=== PATIENT | male | born 1955 | race Caucasian/White ===

== ENCOUNTER 2017-02-17 12:13 | Inpatient (IN) | payer OTHER ==
[2017-02-17 12:33] VITALS: BMI 29.8
--- NOTE | 2017-02-17 14:23 | PDOC ---
History of Present Illness - General History Source: Patient, Old Records Exam Limitations: No Limitations - History of Present Illness Initial Comments: 02/17/17 14:31 The patient is a 62-year-man with a significant past medical history of hypertension, hypercholesterolemia, anxiety and bipolar disorder who was advised to present to the emergency department by his primary care physician, Dr. Yasmani Rosas for further evaluation of abnormal outpatient lab findings today. As per patient, he reports he wa son Latty for the past 15 years and suspects that this may have led to his kidney issues. Patient underwent outpatients labs on 11/23/16 which revealed a BUN/Creatinine of 29/2.56 and yesterday which revealed a BUN/Creatinine of 66/5.97. Patient does not have any complaints. No fever, chills, generalized weakness. No chest pain, cough, shortness of breath. No abdominal pain, nausea, vomiting. Allergies: Penicillin Past Surgical History: None reported. Social History: Current everyday cigarette smoker (approximately 6 cigarettes/ day). No EtOH or recreational drug use. Primary Care Physician: Dr. Yasmani Rosas Pest Control Service Representative: Dr. Maurice Madera <Macy Rolon - Last Filed: 02/17/17 15:35> <Yamilex Guajardo - Last Filed: 02/18/17 11:21> - General Chief Complaint: Revisit, Lab Variance Stated Complaint: (PCP SENT) Time Seen by Provider: 02/17/17 14:20 Past History <Macy Rolon - Last Filed: 02/17/17 15:35> - Past Medical History HTN: Yes Hypercholesterolemia: Yes Psychiatric Problems: Yes (BIPOLAR) - Surgical History Abdominal Surgery: (HERNIA REPAIR) - Psycho/Social/Smoking Cessation Hx Anxiety: Yes Suicidal Ideation: No Smoking History: Current every day smoker Number of Cigarettes Smoked Daily: 6 Information on smoking cessation initiated: No Hx Alcohol Use: No Drug/Substance Use Hx: No Substance Use Type: None <Yamilex Guajardo - Last Filed: 02/18/17 11:21> - Past Medical History Allergies/Adverse Reactions: Allergies Allergy/AdvReac Type Severity Reaction Status Date / Time Penicillins Allergy Verified 02/17/17 12:33 Home Medications: Ambulatory Orders Amlodipine Besylate/Benazepril [Lotrel 10-20 mg Capsule] 1 cap PO DAILY Atorvastatin Ca [Lipitor] 20 mg PO HS 02/17/17 Cholecalciferol (Vitamin D3) [Vitamin D3 -] 50,000 unit PO Q7D 02/17/17 Divalproex *ER* [Depakote *ER* -] 750 mg PO HS 02/17/17 Fenofibrate,Micronized [Fenofibrate] 160 mg PO DAILY 02/17/17 Folic Acid 1 mg PO DAILY 02/17/17 Iron 325 mg PO DAILY 02/17/17 Lamotrigine [Lamictal] 100 mg PO AM 02/17/17 Review of Systems - Review of Systems Able to Perform ROS?: Yes Comments:: 02/17/17 14:33 GENERAL/CONSTITUTIONAL: No fever or chills. No weakness. HEAD, EYES, EARS, NOSE AND THROAT: No change in vision. No ear pain or discharge. No sore throat. CARDIOVASCULAR: No chest pain or shortness of breath. RESPIRATORY: No cough, wheezing, or hemoptysis. GASTROINTESTINAL: No nausea, vomiting, diarrhea or constipation. GENITOURINARY: No dysuria, frequency, or change in urination. MUSCULOSKELETAL: No joint or muscle swelling or pain. No neck or back pain. SKIN: No rash NEUROLOGIC: No headache, vertigo, loss of consciousness, or change in strength/ sensation. ENDOCRINE: No increased thirst. No abnormal weight change. HEMATOLOGIC/LYMPHATIC: No anemia, easy bleeding, or history of blood clots. ALLERGIC/IMMUNOLOGIC: No hives or skin allergy. <Macy Rolon - Last Filed: 02/17/17 15:35> *Physical Exam - Vital Signs Last Vital Signs Temp Pulse Resp BP Pulse Ox 98.4 F 79 18 118/77 97 02/17/17 12:29 02/17/17 12:29 02/17/17 12:29 02/17/17 12:29 02/17/17 12:29 - Physical Exam Comments: 02/17/17 14:34 GENERAL: Awake, alert, and fully oriented, in no acute distress HEAD: No signs of trauma EYES: PERRLA, EOMI, sclera anicteric, conjunctiva clear ENT: Auricles normal inspection, hearing grossly normal, nares patent, oropharynx clear without exudates. Moist mucosa NECK: Normal ROM, supple, no lymphadenopathy, JVD, or masses LUNGS: Scattered wheezes at the right base. No crackles HEART: Regular rate and rhythm, normal S1 and S2, no murmurs, rubs or gallops ABDOMEN: Soft, nontender, normoactive bowel sounds. No guarding, no rebound. No masses EXTREMITIES: Normal range of motion, no edema. No clubbing or cyanosis. No cords, erythema, or tenderness NEUROLOGICAL: Cranial nerves II through XII grossly intact. Normal speech. <Macy Rolon - Last Filed: 02/17/17 15:35> - Vital Signs Last Vital Signs Temp Pulse Resp BP Pulse Ox 98.4 F 79 18 118/77 97 02/17/17 12:29 02/17/17 12:29 02/17/17 12:29 02/17/17 12:29 02/17/17 12:29 <Yamilex Guajardo - Last Filed: 02/18/17 11:21> ED Treatment Course - LABORATORY CBC & Chemistry Diagram: 02/17/17 14:50 02/17/17 14:50 <Macy Rolon - Last Filed: 02/17/17 15:35> - LABORATORY CBC & Chemistry Diagram: 02/17/17 14:50 02/17/17 14:50 <Yamilex Guajardo - Last Filed: 02/18/17 11:21> Medical Decision Making - Medical Decision Making 02/17/17 15:[address] Maurice Madera. Informed by office staff that Dr. Miguel Lemon is covering. <Macy Rolon - Last Filed: 02/17/17 15:35> - Medical Decision Making Case d/w Dr. Lemon, covering Dr. Madera. Will evaluate. Admitted to hospitalist, covering Dr. Navarro at present. <Yamilex Guajardo - Last Filed: 02/18/17 11:21> *DC/Admit/Observation/Transfer - Attestations Scribe Attestion: 02/17/17 14:34 Documentation prepared by Macy Rolon, acting as medical health researcher for Yamilex Guajardo MD. <Macy Rolon - Last Filed: 02/17/17 15:35> - Discharge Dispostion Admit: Yes <Guajardo,Yamilex - Last Filed: 02/18/17 11:21> Diagnosis at time of Disposition: Acute renal failure Qualifiers: Acute renal failure type: unspecified Qualified Code(s): N17.9 - Acute kidney failure, unspecified - Discharge Dispostion Condition at time of disposition: Stable - Referrals
[2017-02-17 15:02] LABS: BASOPHIL 0.8 % (0-2.0); EOSINOPHIL 1.9 % (0-4.5); MCH 29.3 pg (25.7-33.7); MCHC 32.5 g/dl (32.0-35.9); MEAN CELL VOLUME 90.2 fl (80-96); MEAN PLT VOLUME 8.9 fl (7.5-11.1); NEUTROPHILS 71.7 % (42.8-82.8); PLATELET COUNT 211 K/MM3 (134-434); RDW 14.5 % (11.9-15.9); WHITE BLOOD COUNT 8.9 K/mm3 (4.0-10.0)
[2017-02-17 15:07] LABS: URINE APPEARANCE CLEAR; URINE BILIRUBIN NEGATIVE (NEGATIVE); URINE COLOR STRAW; URINE GLUCOSE (UA) 1+ (NEGATIVE); URINE KETONE NEGATIVE (NEGATIVE); URINE LEUK ESTERASE NEGATIVE (NEGATIVE); URINE NITRITE NEGATIVE (NEGATIVE); URINE PROTEIN NEGATIVE (NEGATIVE); URINE UROBILINOGEN NEGATIVE E.U./dl (0.2-1.0)
[2017-02-17 15:24] LABS: URINE BLOOD 2+ (NEGATIVE)
[2017-02-17 15:27] LABS: URINE CREATININE 68.3 mg/dL (20-370)
[2017-02-17 15:28] LABS: ALBUMIN 3.2 g/dl (3.4-5.0); BILIRUBIN,TOTAL 0.4 mg/dL (0.2-1.0); COCKROFT - GAULT 21.57; TOT PROT 7.1 g/dl (6.4-8.2)
--- NOTE | 2017-02-17 16:31 | HP ---
CHIEF COMPLAINT: abnormal labs PCP: Dr. Ralph Madera HISTORY OF PRESENT ILLNESS: I have been asked by Dr. Navarro to admit pt for his service today. Pt is being admitted to his service. Pt is sent in to ER by his PCP, Dr. Rosas, for abnormal lab counts on bun/cr. He has been on lithium for 15 years and now having elevated kidney function. Pt has no complaints. ER course was notable for: (1) elevated Kidney function: Dr. Madera on consult (2) (3) Recent Travel: none PAST MEDICAL HISTORY: HTN, HLD, anxiety, bipolar, bun/cr base line 2.5 now with it elevated over 5. No dialysis as of yet. PAST SURGICAL HISTORY: Social History: Smoking:current Alcohol:none Drugs: none Family History: Allergies Penicillins Allergy (Verified 02/17/17 12:33) HOME MEDICATIONS: Home Medications Medication Instructions Recorded Amlodipine Besylate/Benazepril 1 cap PO DAILY 02/17/17 [Lotrel 10-20 mg Capsule] Atorvastatin Ca [Lipitor] 20 mg PO HS 02/17/17 Cholecalciferol (Vitamin D3) 50,000 unit PO Q7D 02/17/17 [Vitamin D3 -] Divalproex *ER* [Depakote *ER* -] 750 mg PO HS 02/17/17 Fenofibrate,Micronized 160 mg PO DAILY 02/17/17 [Fenofibrate] Folic Acid 1 mg PO DAILY 02/17/17 Iron 325 mg PO DAILY 02/17/17 Lamotrigine [Lamictal] 100 mg PO AM 02/17/17 REVIEW OF SYSTEMS CONSTITUTIONAL: Absent: fever, chills, diaphoresis, generalized weakness, malaise, loss of appetite, weight change HEENT: Absent: rhinorrhea, nasal congestion, throat pain, throat swelling, difficulty swallowing, mouth swelling, ear pain, eye pain, visual changes CARDIOVASCULAR: Absent: chest pain, syncope, palpitations, irregular heart rate, lightheadedness , peripheral edema RESPIRATORY: Absent: cough, shortness of breath, dyspnea with exertion, orthopnea, wheezing, stridor, hemoptysis GASTROINTESTINAL: Absent: abdominal pain, abdominal distension, nausea, vomiting, diarrhea, constipation, melena, hematochezia GENITOURINARY: Absent: dysuria, frequency, urgency, hesitancy, hematuria, flank pain, genital pain MUSCULOSKELETAL: Absent: myalgia, arthralgia, joint swelling, back pain, neck pain SKIN: Absent: rash, itching, pallor HEMATOLOGIC/IMMUNOLOGIC: Absent: easy bleeding, easy bruising, lymphadenopathy, frequent infections ENDOCRINE: Absent: unexplained weight gain, unexplained weight loss, heat intolerance, cold intolerance NEUROLOGIC: Absent: headache, focal weakness or paresthesias, dizziness, unsteady gait, seizure, mental status changes, bladder or bowel incontinence PSYCHIATRIC: Absent: anxiety, depression, suicidal or homicidal ideation, hallucinations. PHYSICAL EXAMINATION Vital Signs - 24 hr 02/17/17 12:29 Temperature 98.4 F Pulse Rate 79 Respiratory 18 Rate Blood Pressure 118/77 O2 Sat by Pulse 97 Oximetry (%) GENERAL: Awake, alert, and fully oriented, in no acute distress. HEAD: Normal with no signs of trauma. EYES: Pupils equal, round and reactive to light, extraocular movements intact, sclera anicteric, conjunctiva clear. No lid lag. EARS, NOSE, THROAT: Ears normal, nares patent, oropharynx clear without exudates. Moist mucous membranes. NECK: Normal range of motion, supple without lymphadenopathy, JVD, or masses. LUNGS: Breath sounds equal, clear to auscultation bilaterally. No wheezes, and no crackles. No accessory muscle use. HEART: Regular rate and rhythm, normal S1 and S2 without murmur, rub or gallop. ABDOMEN: Soft, nontender, not distended, normoactive bowel sounds, no guarding, no rebound, no masses. No hepatomegaly or splenomegaly. MUSCULOSKELETAL: Normal range of motion at all joints. No bony deformities or tenderness. No CVA tenderness. UPPER EXTREMITIES: 2+ pulses, warm, well-perfused. No cyanosis. No clubbing. No peripheral edema. LOWER EXTREMITIES: 2+ pulses, warm, well-perfused. No calf tenderness. No peripheral edema. NEUROLOGICAL: Cranial nerves II-XII intact. Normal speech. Normal gait. PSYCHIATRIC: Cooperative. Good eye contact. Appropriate mood and affect. SKIN: Warm, dry, normal turgor, no rashes or lesions noted, normal capillary refill. Laboratory Results - last 24 hr 02/17/17 02/17/17 02/17/17 14:50 14:50 15:00 WBC 8.9 RBC 3.50 L Hgb 10.3 L Hct 31.6 L MCV 90.2 MCHC 32.5 RDW 14.5 Plt Count 211 MPV 8.9 Neutrophils % 71.7 Lymphocytes % 16.1 Monocytes % 9.5 Eosinophils % 1.9 Basophils % 0.8 Sodium 147 H Potassium 4.1 Chloride 114 H Carbon Dioxide 21 Anion Gap 12 BUN 59 H Creatinine 5.0 H Creat Clearance w eGFR 11.90 Random Glucose 99 Calcium 9.0 Total Bilirubin 0.4 AST 25 ALT 71 Alkaline Phosphatase 56 Total Protein 7.1 Albumin 3.2 L Urine Color Straw Urine Appearance Clear Urine pH 5.0 Urine Protein Negative Urine Glucose (UA) 1+ H Urine Ketones Negative Urine Blood 2+ H Urine Nitrite Negative Urine Bilirubin Negative Urine Urobilinogen Negative Ur Leukocyte Esterase Negative Ur Random Sodium Urine Creatinine 02/17/17 15:00 WBC RBC Hgb Hct MCV MCHC RDW Plt Count MPV Neutrophils % Lymphocytes % Monocytes % Eosinophils % Basophils % Sodium Potassium Chloride Carbon Dioxide Anion Gap BUN Creatinine Creat Clearance w eGFR Random Glucose Calcium Total Bilirubin AST ALT Alkaline Phosphatase Total Protein Albumin Urine Color Urine Appearance Urine pH Urine Protein Urine Glucose (UA) Urine Ketones Urine Blood Urine Nitrite Urine Bilirubin Urine Urobilinogen Ur Leukocyte Esterase Ur Random Sodium 54 Urine Creatinine 68.3 ASSESSMENT/PLAN: 62 yr old male admitted for elevated cr kidney levels of double his trend from 2.4 to 5.0. 1. ARF: -consult with nephrology, Dr. Madera -Strict I and O -follow up urine lytes. -depakote level 2. Admit observation, med surg under care of Dr. Navarro Visit type - Emergency Visit Emergency Visit: Yes ED Registration Date: 02/17/17 Care time: The patient presented to the Emergency Department on the above date and was hospitalized for further evaluation of their emergent condition. - New Patient This patient is new to me today: Yes Date on this admission: 02/17/17 - Critical Care Critical Care patient: No
[2017-02-17] MEDS ORDERED: PNEUMOC 13-VAL CONJ-DIP CRM/PF 0.5 ML DISP.SYRIN IM ONE (18:09)
[2017-02-17] MEDS ORDERED: PNEUMOCOCCAL 23 VACCINE 0.5 ML VIAL IM ONE (18:30)
[2017-02-17] MEDS: SODIUM CHLORIDE 1,000 ML IV SCH (21:40)
--- NOTE | 2017-02-17 21:43 | CON.NEP ---
Consult Consult Specialty:: Nephrology Reason for Consultation:: azotemia - History of Present Illness Chief Complaint: increased azotemia History of Present Illness: h/o ckd baseline creat 2.5 in nov 2016 referred to er for eval of increased azotemia creat 5 he says he has been busy cutting grass and being physically active does not have a habit of drinking fluids but says he has coffees and alcoholic drinks - History Source History Provided By: Patient Limitations to Obtaining History: Clinical Condition - Alcohol/Substance Use Hx Alcohol Use: No - Smoking History Smoking history: Current every day smoker Aproximately how many cigarettes per day: 6 Home Medications - Allergies Allergies/Adverse Reactions: Allergies Allergy/AdvReac Type Severity Reaction Status Date / Time Penicillins Allergy Verified 02/17/17 12:33 - Home Medications Home Medications: Ambulatory Orders Amlodipine Besylate/Benazepril [Lotrel 10-20 mg Capsule] 1 cap PO DAILY Atorvastatin Ca [Lipitor] 20 mg PO HS 02/17/17 Cholecalciferol (Vitamin D3) [Vitamin D3 -] 50,000 unit PO Q7D 02/17/17 Divalproex *ER* [Depakote *ER* -] 750 mg PO HS 02/17/17 Fenofibrate,Micronized [Fenofibrate] 160 mg PO DAILY 02/17/17 Folic Acid 1 mg PO DAILY 02/17/17 Iron 325 mg PO DAILY 02/17/17 Lamotrigine [Lamictal] 100 mg PO AM 02/17/17 Nephrology Consult - Height Height: 5 ft 11 in - Weight Weight: 214 lb - BMI Body Mass Index (BMI): 29.8 - Lab Results Anion Gap: Anion Gap Anion Gap 12 (8-16) 02/17/17 14:50 - Physical Examination Vital Signs: Vital Signs Temperature 98.3 F 02/17/17 18:17 Pulse Rate 82 02/17/17 18:17 Respiratory Rate 20 02/17/17 18:17 Blood Pressure 140/80 02/17/17 18:17 O2 Sat by Pulse Oximetry (%) 97 02/17/17 18:17 Constitutional: Yes: Well Nourished, Obese Eyes: Yes: WNL HENT: Yes: WNL Neck: Yes: WNL Cardiovascular: Yes: WNL Respiratory: Yes: WNL Gastrointestinal: Yes: WNL Musculoskeletal: Yes: WNL Extremities: Yes: WNL Edema: No Peripheral Pulses WNL: Yes Integumentary: Yes: WNL Neurological: Yes: WNL Psychiatric: Yes: WNL Assessment/Plan pedro on ckd/prerenal h/o lithium use hypernatremia worsened kidney function (unable to locate prior renal function tests) dehydration (clinically and by labs N r/o lithium neohropathy r/o obstruction Plan - hydration IVF sonogram of kidneys and bladder follow urine output and serum chems
[2017-02-18] MEDS: SODIUM CHLORIDE 1,000 ML IV SCH (05:20)
--- NOTE | 2017-02-18 09:20 | EKG ---
Test Reason : Blood Pressure : / mmHG Vent. Rate : 071 BPM Atrial Rate : 071 BPM P-R Int : 176 ms QRS Dur : 106 ms QT Int : 398 ms P-R-T Axes : 062 009 041 degrees QTc Int : 432 ms NORMAL SINUS RHYTHM NORMAL ECG NO PREVIOUS ECGS AVAILABLE Confirmed by JANEL UGARTE MD ([id number]) on 02/18/2017 9:20:17 AM Referred By: Confirmed By:JANEL UGARTE MD
--- NOTE | 2017-02-18 09:56 | HP ---
DATE OF ADMISSION: DATE OF DICTATION: 02/18/2017 HISTORY OF PRESENT ILLNESS: He is a 62-year-old male who was referred to the emergency room as patient was found to have azotemia. His baseline BUN and creatinine are unknown, but on recent labs done in the doctor's office recently there had been an acute elevation of his BUN and creatinine. Hence, he has been admitted for further evaluation and treatment. PAST MEDICAL HISTORY: Significant for bipolar disorder and patient claims that his renal insufficiency arose from having taken lithium many years ago. He had stopped taking lithium 15 years ago. hyperlipidemia, hypertension. PRESENT MEDICATIONS: Include Lipitor 20 mg p.o. daily, amlodipine 5 mg p.o. daily, vitamin D3, vitamin B, Depakote ER 750 mg at night, fenofibrate 160 mg daily, folic acid 1 mg daily, iron 325 mg daily, and Lamictal 100 mg daily. ALLERGIES: PENICILLIN. SOCIAL HISTORY: He is . He has no children. He is a nonsmoker. He denies any alcohol or drug abuse. He is a retired client delivery specialist. FAMILY HISTORY: Significant for 2 siblings. There is no family history of renal insufficiency, malignancy, diabetes, or hypertension. REVIEW OF SYSTEMS: Unremarkable. He has generally been in good health. He denies any chronic headache, dizziness, chest pains, palpitation, abdominal pain, loss of weight, loss of appetite. PHYSICAL EXAMINATION:Vital Signs: He has a blood pressure of 126/80, pulse rate of 76, respiratory rate of 18, temperature 98.2. General: He is not pale, nonicteric. Neck: JVD is absent. Thyroid and carotids appear normal. Heart: Regular rhythm. No murmurs. Lungs: Vesicular breathing clear. Abdomen: Benign. Extremities: Have no edema. LABORATORY DATA: Blood work shows a BUN of 59, creatinine of 5. Otherwise, comprehensive metabolic profile is normal. He has a white count of 8000 with a hemoglobin of 10.3 and hematocrit 30. Urinalysis has 1+ glucose and 2+ blood, otherwise is within normal limits. Valproic acid level is 15.3. ASSESSMENT AND PLAN: 1. Acute on chronic renal failure etiology of which is unclear. Patient has been admitted. Would review old records for baseline and get preparation with AV fistula, etc., for dialysis if it is indeed worsening chronic renal insufficiency. Patient is scheduled for an ultrasound of the abdomen today. Would evaluate results. 2. Hypertension. 3. Hyperlipidemia. 4. Bipolar disorder. Continue present medications. ROMAN MEJIA M.D. [id number]
[2017-02-18] MEDS ORDERED: amLODIPine BESYLATE 5 MG TABLET (FP) PO SCH (10:00)
[2017-02-18] MEDS ORDERED: CHOLECALCIFEROL (VITAMIN D3) 400 UNIT TABLET (FP) PO SCH (10:00)
[2017-02-18] MEDS ORDERED: PATIENT'S OWN MEDICATION (NON-FORMULARY) (Amlodipine Besylate/Benazepril [Lotrel 10-20 Mg PO SCH (10:00)
[2017-02-18] MEDS ORDERED: FENOFIBRATE MICRONIZED 160 MG PO SCH (10:00)
[2017-02-18] MEDS ORDERED: PT OWN MED DRAWER 7, Y5N ONE ×2 (10:34→21:19)
[2017-02-18 11:26] LABS: MCH 29.2 pg (25.7-33.7); MCHC 32.5 g/dl (32.0-35.9); MEAN PLT VOLUME 9.2 fl (7.5-11.1); PLATELET COUNT 175 K/MM3 (134-434); WHITE BLOOD COUNT 6.8 K/mm3 (4.0-10.0)
[2017-02-18] MEDS: amLODIPine BESYLATE 10 MG TABLET (FP) PO SCH (11:28)
[2017-02-18] MEDS: FERROUS SO4 325 MG TABLET (FP) PO SCH (11:28)
[2017-02-18] MEDS: FOLIC ACID 1 MG TABLET (FP) PO SCH (11:28)
[2017-02-18] MEDS: LISINOPRIL 20 MG TABLET (FP) PO SCH (11:29)
[2017-02-18 11:48] LABS: CALCIUM 8.9 mg/dL (8.5-10.1); COCKROFT - GAULT 23.8; CREATININE 4.3 mg/dL (0.7-1.3)
--- NOTE | 2017-02-18 15:38 | PN ---
Progress Note (short form) - Note Progress Note: pedro- last creat was 2.56 in Feb (eGFR 27cc) hypernatremia h/o lithium use in past Current Medications Amlodipine Besylate (Norvasc -) 10 mg PO DAILY [facility] Last Admin: 02/18/17 11:28 Dose: 10 mg Atorvastatin Calcium (Lipitor -) 20 mg PO HS [facility] Divalproex Sodium (Depakote *Er* -) 750 mg PO HS [facility] Ferrous Sulfate (Feosol -) 325 mg PO DAILY [facility] Last Admin: 02/18/17 11:28 Dose: 325 mg Folic Acid (Folic Acid -) 1 mg PO DAILY [facility] Last Admin: 02/18/17 11:28 Dose: 1 mg Sodium Chloride (1/2 Normal Saline) 1,000 mls @ 100 mls/hr IV ASDIR [facility] Lamotrigine (Lamictal -) 100 mg PO AM [facility] Lisinopril (Prinivil) 20 mg PO DAILY [facility] Last Admin: 02/18/17 11:29 Dose: 20 mg Non-Formulary Medication (Fenofibrate,Micronized [Fenofibrate]) 160 mg PO DAILY [facility] Last Vital Signs Temp Pulse Resp BP Pulse Ox 98.0 F 84 18 130/82 97 02/18/17 14:45 02/18/17 14:45 02/18/17 08:00 02/18/17 14:45 02/18/17 08:00 lungs clear heart reg abd soft ext no edema CBC, BMP 02/18/17 11:00 02/18/17 11:00 IMP- pedro- modest improvement with ivf sodium 149- not thirsty having good urine output Plan change ivf to 1/2 ns at 100 bmp in am
[2017-02-18] MEDS: SODIUM CHLORIDE 0.45% 1,000 ML IV SCH (16:02)
[2017-02-18] MEDS: DIVALPROEX NA *ER* EXTEND REL 250 MG TABLET.SA PO SCH (21:20)
[2017-02-18] MEDS: ATORVASTATIN CA 20 MG TABLET (FP) PO SCH (21:20)
[2017-02-19] MEDS: SODIUM CHLORIDE 0.45% 1,000 ML IV SCH ×2 (06:05→21:32)
[2017-02-19] MEDS: lamoTRIgine 100 MG TABLET (FP) PO SCH (06:06)
[2017-02-19] MEDS: FOLIC ACID 1 MG TABLET (FP) PO SCH (10:03)
[2017-02-19] MEDS: FERROUS SO4 325 MG TABLET (FP) PO SCH (10:03)
[2017-02-19] MEDS: amLODIPine BESYLATE 10 MG TABLET (FP) PO SCH (10:05)
[2017-02-19] MEDS: LISINOPRIL 20 MG TABLET (FP) PO SCH (10:05)
--- NOTE | 2017-02-19 12:36 | PN ---
Progress Note (short form) - Note Progress Note: No complaints No SOB O/E Vital Signs Period Temp Pulse Resp BP Sys/Jaimes Pulse Ox Last 24 Hr 97.8 F-98.8 F 73-84 18-18 114-135/55-82 96 Heart regular Lungs clear Abd soft Ext no edema Current Medications Amlodipine Besylate (Norvasc -) 10 mg PO DAILY [facility] Last Admin: 02/19/17 10:05 Dose: 10 mg Atorvastatin Calcium (Lipitor -) 20 mg PO HS [facility] Last Admin: 02/18/17 21:20 Dose: 20 mg Divalproex Sodium (Depakote *Er* -) 750 mg PO HS [facility] Last Admin: 02/18/17 21:20 Dose: 750 mg Ferrous Sulfate (Feosol -) 325 mg PO DAILY [facility] Last Admin: 02/19/17 10:03 Dose: 325 mg Folic Acid (Folic Acid -) 1 mg PO DAILY [facility] Last Admin: 02/19/17 10:03 Dose: 1 mg Sodium Chloride (1/2 Normal Saline) 1,000 mls @ 100 mls/hr IV ASDIR [facility] Last Admin: 02/19/17 06:05 Dose: 100 mls/hr Lamotrigine (Lamictal -) 100 mg PO AM [facility] Last Admin: 02/19/17 06:06 Dose: 100 mg Lisinopril (Prinivil) 20 mg PO DAILY [facility] Last Admin: 02/19/17 10:05 Dose: 20 mg Non-Formulary Medication (Fenofibrate,Micronized [Fenofibrate]) 160 mg PO DAILY [facility] Laboratory Results - last 24 hr 02/19/17 06:00 Ferritin 215.116 A&P 1.Acute on CRF FeNa is 0.02 compatible with prerenal Azotemia is improving with IV hydration. Sono shows no obstruction but is compatible with medical rela disease f/u labs and obtain baseline tomorrow 2.Anemia Likely due to chronic disease, labs still pnd 3.HTN controlled
--- NOTE | 2017-02-19 17:06 | PN ---
Progress Note (short form) - Note Progress Note: feels well has good urine output Current Medications Amlodipine Besylate (Norvasc -) 10 mg PO DAILY [facility] Last Admin: 02/19/17 10:05 Dose: 10 mg Atorvastatin Calcium (Lipitor -) 20 mg PO HS [facility] Last Admin: 02/18/17 21:20 Dose: 20 mg Divalproex Sodium (Depakote *Er* -) 750 mg PO HS [facility] Last Admin: 02/18/17 21:20 Dose: 750 mg Ferrous Sulfate (Feosol -) 325 mg PO DAILY [facility] Last Admin: 02/19/17 10:03 Dose: 325 mg Folic Acid (Folic Acid -) 1 mg PO DAILY [facility] Last Admin: 02/19/17 10:03 Dose: 1 mg Sodium Chloride (1/2 Normal Saline) 1,000 mls @ 100 mls/hr IV ASDIR [facility] Last Admin: 02/19/17 06:05 Dose: 100 mls/hr Lamotrigine (Lamictal -) 100 mg PO AM [facility] Last Admin: 02/19/17 06:06 Dose: 100 mg Lisinopril (Prinivil) 20 mg PO DAILY [facility] Last Admin: 02/19/17 10:05 Dose: 20 mg Non-Formulary Medication (Fenofibrate,Micronized [Fenofibrate]) 160 mg PO DAILY [facility] Last Vital Signs Temp Pulse Resp BP Pulse Ox 98.0 F 73 18 110/7 96 02/19/17 14:00 02/19/17 14:00 02/19/17 16:00 02/19/17 14:00 02/19/17 16:00 no dizziness lungs clear heart reg rate and rhythm abd soft nontender CBC, BMP 02/18/17 11:00 IMP- DA on CKD underlying CKD Plan continue IVF f/u bmp in am
[2017-02-19 17:07] LABS: CALCIUM 8.5 mg/dL (8.5-10.1); COCKROFT - GAULT 29.06; CREATININE 3.6 mg/dL (0.7-1.3)
[2017-02-19] MEDS: ATORVASTATIN CA 20 MG TABLET (FP) PO SCH (21:31)
[2017-02-19] MEDS: DIVALPROEX NA *ER* EXTEND REL 250 MG TABLET.SA PO SCH (21:31)
[2017-02-20 00:56] LABS: ALBUMIN 2.7 g/dl (3.4-5.0); BILIRUBIN,TOTAL 0.3 mg/dL (0.2-1.0); CALCIUM 8.7 mg/dL (8.5-10.1); COCKROFT - GAULT 29.95; CREATININE 3.6 mg/dL (0.7-1.3)
[2017-02-20] MEDS: lamoTRIgine 100 MG TABLET (FP) PO SCH (05:59)
[2017-02-20 06:06] LABS: SERUM IRON 32 ug/dL (38-169); TOTAL IRON BINDING CAPACITY 266 ug/dL (250-450); UIBC 234 ug/dL (111-343)
[2017-02-20] MEDS: FOLIC ACID 1 MG TABLET (FP) PO SCH (09:33)
[2017-02-20] MEDS: LISINOPRIL 20 MG TABLET (FP) PO SCH (09:33)
[2017-02-20] MEDS: amLODIPine BESYLATE 10 MG TABLET (FP) PO SCH (09:33)
[2017-02-20] MEDS: FERROUS SO4 325 MG TABLET (FP) PO SCH (09:33)
[2017-02-20] MEDS: SODIUM CHLORIDE 0.45% 1,000 ML IV SCH ×2 (11:31→20:20)
--- NOTE | 2017-02-20 12:41 | PN ---
Progress Note, Physician Chief Complaint: Mr Anderson is without complaint. No cp, sob, n/v. Eager to go home - Current Medication List Current Medications: Active Medications Amlodipine Besylate (Norvasc -) 10 mg PO DAILY [facility] Last Admin: 02/20/17 09:33 Dose: 10 mg Atorvastatin Calcium (Lipitor -) 20 mg PO HS [facility] Last Admin: 02/19/17 21:31 Dose: 20 mg Divalproex Sodium (Depakote *Er* -) 750 mg PO HS [facility] Last Admin: 02/19/17 21:31 Dose: 750 mg Ferrous Sulfate (Feosol -) 325 mg PO DAILY [facility] Last Admin: 02/20/17 09:33 Dose: 325 mg Folic Acid (Folic Acid -) 1 mg PO DAILY [facility] Last Admin: 02/20/17 09:33 Dose: 1 mg Sodium Chloride (1/2 Normal Saline) 1,000 mls @ 100 mls/hr IV ASDIR [facility] Last Admin: 02/20/17 11:31 Dose: 100 mls/hr Lamotrigine (Lamictal -) 100 mg PO AM [facility] Last Admin: 02/20/17 05:59 Dose: 100 mg Lisinopril (Prinivil) 20 mg PO DAILY [facility] Last Admin: 02/20/17 09:33 Dose: 20 mg Non-Formulary Medication (Fenofibrate,Micronized [Fenofibrate]) 160 mg PO DAILY [facility] - Objective Vital Signs: Vital Signs Temperature 98.6 F 02/20/17 08:00 Pulse Rate 66 02/20/17 08:00 Respiratory Rate 18 02/20/17 08:00 Blood Pressure 150/84 02/20/17 08:00 O2 Sat by Pulse Oximetry (%) 96 02/20/17 08:00 Constitutional: Yes: Well Nourished, No Distress, Calm Cardiovascular: Yes: Regular Rate and Rhythm. No: Gallop, Murmur, Rub Respiratory: Yes: Regular, CTA Bilaterally. No: Rales, Rhonchi, Wheezes Gastrointestinal: Yes: Normal Bowel Sounds, Soft. No: Distention, Tenderness Extremities: Yes: WNL Edema: No Labs: CBC, BMP 02/18/17 11:00 02/20/17 00:05 Problem List - Problems (1) Acute renal failure Assessment/Plan: -improving with IVF -appreciate nephrology assistance -patient states he has CKD -creatinine stabilized -awaiting nephrology recommendations about further treatment vs discharge home with outpatient follow up Code(s): N17.9 - ACUTE KIDNEY FAILURE, UNSPECIFIED Qualifiers: Acute renal failure type: unspecified Qualified Code(s): N17.9 - Acute kidney failure, unspecified (2) HTN (hypertension) Assessment/Plan: -continue lisinopril and amlodipine Code(s): I10 - ESSENTIAL (PRIMARY) HYPERTENSION (3) Hyperlipidemia Assessment/Plan: -continue statin Code(s): E78.5 - HYPERLIPIDEMIA, UNSPECIFIED (4) Bipolar 1 disorder Assessment/Plan: -controlled -continue current regimen Code(s): F31.9 - BIPOLAR DISORDER, UNSPECIFIED
--- NOTE | 2017-02-20 16:33 | PN ---
Progress Note, Physician Chief Complaint: Patient with CKD 3-4 admitted with Acute renal failure and Hypernatremia, possibly due to Dehydration. Renal functions improving with IV hydration. maintains good urine output. No pains. NO SOB, No edema, No joint symptoms. - Current Medication List Current Medications: Active Medications Amlodipine Besylate (Norvasc -) 10 mg PO DAILY [facility] Last Admin: 02/20/17 09:33 Dose: 10 mg Atorvastatin Calcium (Lipitor -) 20 mg PO HS [facility] Last Admin: 02/19/17 21:31 Dose: 20 mg Divalproex Sodium (Depakote *Er* -) 750 mg PO [facility] Last Admin: 02/19/17 21:31 Dose: 750 mg Ferrous Sulfate (Feosol -) 325 mg PO DAILY [facility] Last Admin: 02/20/17 09:33 Dose: 325 mg Folic Acid (Folic Acid -) 1 mg PO DAILY [facility] Last Admin: 02/20/17 09:33 Dose: 1 mg Sodium Chloride (1/2 Normal Saline) 1,000 mls @ 100 mls/hr IV ASDIR [facility] Last Admin: 02/20/17 11:31 Dose: 100 mls/hr Lamotrigine (Lamictal -) 100 mg PO AM [facility] Last Admin: 02/20/17 05:59 Dose: 100 mg Lisinopril (Prinivil) 20 mg PO DAILY [facility] Last Admin: 02/20/17 09:33 Dose: 20 mg Non-Formulary Medication (Fenofibrate,Micronized [Fenofibrate]) 160 mg PO DAILY [facility] - Objective Vital Signs: Vital Signs Temperature 98.1 F 02/20/17 14:00 Pulse Rate 76 02/20/17 14:00 Respiratory Rate 18 02/20/17 08:00 Blood Pressure 138/78 02/20/17 14:00 O2 Sat by Pulse Oximetry (%) 96 02/20/17 08:00 Constitutional: Yes: Well Nourished Eyes: Yes: Conjunctiva Clear HENT: Yes: Normocephalic Neck: Yes: Trachea Midline Cardiovascular: Yes: Regular Rate and Rhythm, S1, S2 Respiratory: Yes: Regular, CTA Bilaterally Gastrointestinal: Yes: Normal Bowel Sounds, Abdomen, Obese (Patient clains to have lost about 45 lbs recently) Genitourinary: No: Bladder Distention Musculoskeletal: No: Back Pain Problem List - Problems (1) Acute renal failure Code(s): N17.9 - ACUTE KIDNEY FAILURE, UNSPECIFIED Qualifiers: Acute renal failure type: unspecified Qualified Code(s): N17.9 - Acute kidney failure, unspecified (2) Bipolar 1 disorder Code(s): F31.9 - BIPOLAR DISORDER, UNSPECIFIED (3) HTN (hypertension) Code(s): I10 - ESSENTIAL (PRIMARY) HYPERTENSION (4) Hyperlipidemia Code(s): E78.5 - HYPERLIPIDEMIA, UNSPECIFIED (5) Hypernatremia Code(s): E87.0 - HYPEROSMOLALITY AND HYPERNATREMIA (6) Chronic renal failure, stage 3 (moderate) Code(s): N18.3 - CHRONIC KIDNEY DISEASE, STAGE 3 (MODERATE) Assessment/Plan 62 y/o male with Bipolar disorder, h/o CKD4 came in Acute kidney failure and Hypernatremia. The patient admits to have not been taking enough water, but had been taking a lot of coffee. Renal functions improving with IV Hydration. Hypernatremia also improving. Will monitor the renal/ Electrolyte profile with you. Danyelle Conrad MD
[2017-02-20] MEDS ORDERED: PT OWN MED DRAWER 7, Y5N ONE (20:41)
[2017-02-20] MEDS: DIVALPROEX NA *ER* EXTEND REL 250 MG TABLET.SA PO SCH (21:09)
[2017-02-20] MEDS: ATORVASTATIN CA 20 MG TABLET (FP) PO SCH (21:09)
[2017-02-21] MEDS: lamoTRIgine 100 MG TABLET (FP) PO SCH (06:11)
[2017-02-21] MEDS: SODIUM CHLORIDE 0.45% 1,000 ML IV SCH (06:11)
[2017-02-21 07:21] LABS: CALCIUM 8.5 mg/dL (8.5-10.1); COCKROFT - GAULT 30.94; CREATININE 3.3 mg/dL (0.7-1.3)
[2017-02-21 07:23] LABS: BILIRUBIN,TOTAL 0.4 mg/dL (0.2-1.0); TOT PROT 6.7 g/dl (6.4-8.2)
[2017-02-21 07:40] VITALS: BP 159/77
[2017-02-21] MEDS: amLODIPine BESYLATE 10 MG TABLET (FP) PO SCH (10:16)
[2017-02-21] MEDS: LISINOPRIL 20 MG TABLET (FP) PO SCH (10:16)
[2017-02-21] MEDS: FOLIC ACID 1 MG TABLET (FP) PO SCH (10:16)
[2017-02-21] MEDS: FERROUS SO4 325 MG TABLET (FP) PO SCH (10:16)
[2017-02-21 13:31] VITALS: PULSE 72; TEMP 98
--- NOTE | 2017-02-21 14:02 | PN ---
Progress Note, Physician - Current Medication List Current Medications: Active Medications Amlodipine Besylate (Norvasc -) 10 mg PO DAILY [facility] Last Admin: 02/21/17 10:16 Dose: 10 mg Atorvastatin Calcium (Lipitor -) 20 mg PO HS [facility] Last Admin: 02/20/17 21:09 Dose: 20 mg Divalproex Sodium (Depakote *Er* -) 750 mg PO HS [facility] Last Admin: 02/20/17 21:09 Dose: 750 mg Ferrous Sulfate (Feosol -) 325 mg PO DAILY [facility] Last Admin: 02/21/17 10:16 Dose: 325 mg Folic Acid (Folic Acid -) 1 mg PO DAILY [facility] Last Admin: 02/21/17 10:16 Dose: 1 mg Sodium Chloride (1/2 Normal Saline) 1,000 mls @ 100 mls/hr IV ASDIR [facility] Last Admin: 02/21/17 06:11 Dose: 100 mls/hr Lamotrigine (Lamictal -) 100 mg PO AM [facility] Last Admin: 02/21/17 06:11 Dose: 100 mg Lisinopril (Prinivil) 20 mg PO DAILY [facility] Last Admin: 02/21/17 10:16 Dose: 20 mg Non-Formulary Medication (Fenofibrate,Micronized [Fenofibrate]) 160 mg PO DAILY [facility] - Objective Vital Signs: Vital Signs Temperature 98.0 F 02/21/17 13:29 Pulse Rate 72 02/21/17 13:29 Respiratory Rate 20 02/21/17 13:29 Blood Pressure 159/77 02/21/17 07:39 O2 Sat by Pulse Oximetry (%) 99 02/21/17 08:00 Labs: CBC, BMP 02/21/17 06:00 Problem List - Problems (1) Acute renal failure Code(s): N17.9 - ACUTE KIDNEY FAILURE, UNSPECIFIED Qualifiers: Acute renal failure type: unspecified Qualified Code(s): N17.9 - Acute kidney failure, unspecified (2) HTN (hypertension) Code(s): I10 - ESSENTIAL (PRIMARY) HYPERTENSION (3) Hyperlipidemia Code(s): E78.5 - HYPERLIPIDEMIA, UNSPECIFIED (4) Bipolar 1 disorder Code(s): F31.9 - BIPOLAR DISORDER, UNSPECIFIED
--- NOTE | 2017-02-21 15:33 | PN ---
Progress Note (short form) - Note Progress Note: Renal follow up for DA on CKD Stage 4 Pt seen and examined at the bedside no acute complaints tolerating meals well no N/V/D on ACEi good urine output Vital Signs Temperature 98.0 F 02/21/17 13:29 Pulse Rate 72 02/21/17 13:29 Respiratory Rate 20 02/21/17 13:29 Blood Pressure 159/77 02/21/17 07:39 O2 Sat by Pulse Oximetry (%) 99 02/21/17 08:00 Intake & Output 02/18/17 02/19/17 02/20/17 02/21/17 23:59 23:59 23:59 23:59 Intake Total 2567 3140 3650 1600 Output Total 2975 3450 4450 2200 Balance -408 -310 -800 -600 Weight 203 lb 3.2 oz 214 lb 202 lb 9.6 oz 206 lb Gen: NAD, awake and alert CVS: RRR, No M/R Lungs: CTA Abd: soft NT/ND Ext: No edema CBC, BMP 02/18/17 11:00 02/21/17 06:00 Current Medications Amlodipine Besylate (Norvasc -) 10 mg PO DAILY [facility] Last Admin: 02/21/17 10:16 Dose: 10 mg Atorvastatin Calcium (Lipitor -) 20 mg PO HS [facility] Last Admin: 02/20/17 21:09 Dose: 20 mg Divalproex Sodium (Depakote *Er* -) 750 mg PO HS [facility] Last Admin: 02/20/17 21:09 Dose: 750 mg Ferrous Sulfate (Feosol -) 325 mg PO DAILY [facility] Last Admin: 02/21/17 10:16 Dose: 325 mg Folic Acid (Folic Acid -) 1 mg PO DAILY [facility] Last Admin: 02/21/17 10:16 Dose: 1 mg Sodium Chloride (1/2 Normal Saline) 1,000 mls @ 100 mls/hr IV ASDIR [facility] Last Admin: 02/21/17 06:11 Dose: 100 mls/hr Lamotrigine (Lamictal -) 100 mg PO AM [facility] Last Admin: 02/21/17 06:11 Dose: 100 mg Lisinopril (Prinivil) 20 mg PO DAILY [facility] Last Admin: 02/21/17 10:16 Dose: 20 mg Non-Formulary Medication (Fenofibrate,Micronized [Fenofibrate]) 160 mg PO DAILY [facility] A/P 61 year old gentleman with PMhx of CKD Stage 4 w/o proteinuria, Hypertension, Bipolar disorder, Chronic Anemia presented with outpatient labs that showed acute renal failure. #Acute Kidney injury in setting of CKD stage 4 etiology of injury likely related to volume depletion (reason unclear) with renal ischemia in setting of ACEi urine studies consistent with some degree of tubular injury volume status improved with IVF no hypotension noted Pt maintained on ACEi with improvement in renal function pt stable for discharge but encouraged to drink 12-14 glasses of water daily to follow up in the office in 1 week and will repeat labs at that time Case discussed with Dr. Navarro Thank you Maurice Madera DO
--- NOTE | 2017-02-23 16:26 | DS ---
Physical Examination Vital Signs: Vital Signs Temperature 98.0 F 02/21/17 13:29 Pulse Rate 72 02/21/17 13:29 Respiratory Rate 20 02/21/17 13:29 Blood Pressure 159/77 02/21/17 07:39 O2 Sat by Pulse Oximetry (%) 99 02/21/17 08:00 Constitutional: Yes: Well Nourished, No Distress, Calm Cardiovascular: Yes: Regular Rate and Rhythm. No: Gallop, Murmur, Rub Respiratory: Yes: Regular, CTA Bilaterally. No: Rales, Rhonchi, Wheezes Gastrointestinal: Yes: Normal Bowel Sounds, Soft. No: Distention, Tenderness Extremities: Yes: WNL Edema: No Labs: CBC, BMP 02/21/17 06:00 Discharge Summary Reason For Visit: ACUTE RENAL FAILURE Current Active Problems Acute renal failure (Acute) Bipolar 1 disorder (Acute) Chronic renal failure, stage 3 (moderate) (Acute) HTN (hypertension) (Acute) Hyperlipidemia (Acute) Hypernatremia (Acute) Hospital Course: (1) Acute renal failure Code(s): N17.9 - ACUTE KIDNEY FAILURE, UNSPECIFIED Qualifiers: Acute renal failure type: unspecified Qualified Code(s): N17.9 - Acute kidney failure, unspecified (2) HTN (hypertension) Code(s): I10 - ESSENTIAL (PRIMARY) HYPERTENSION (3) Hyperlipidemia Code(s): E78.5 - HYPERLIPIDEMIA, UNSPECIFIED (4) Bipolar 1 disorder Code(s): F31.9 - BIPOLAR DISORDER, UNSPECIFIED Mr Anderson is a very pleasant 62 year old male who came in with ARF. He was asymptomatic and this was found on routine lab checks. He was admitted to the hospital. He was hydrated with IVF. Nephrology was consulted and managed his ARF. His renal function improved. He was able to be transitioned off of IVF. He is to follow up with his PCP and tube coverer. 31 minutes spent in preparation of this discharge Condition: Good - Instructions Diet, Activity, Other Instructions: Stay well hydrated. Avoid ibuprofen and coffee. Follow up with both Dr Rosas and Dr Madera next week. Resume previous activity. Low salt diet. Referrals: Yasmani Rosas MD [Primary Care Provider] - Maurice Madera MD [Staff Physician] - Disposition: HOME - Home Medications Comprehensive Discharge Medication List: Ambulatory Orders Amlodipine Besylate/Benazepril [Lotrel 10-20 mg Capsule] 1 cap PO DAILY Atorvastatin Ca [Lipitor] 20 mg PO HS 02/17/17 Cholecalciferol (Vitamin D3) [Vitamin D -] 50,000 unit PO Q7D 02/17/17 Divalproex *ER* [Depakote *ER* -] 750 mg PO HS 02/17/17 Fenofibrate,Micronized [Fenofibrate] 160 mg PO DAILY 02/17/17 Folic Acid 1 mg PO DAILY 02/17/17 Iron 325 mg PO DAILY 02/17/17 Lamotrigine [Lamictal] 100 mg PO AM 02/17/17
== END 2017-02-21 16:18 | disposition home or self-care (01) | DRG 460 ==
LOC: JER 12:13 → JERBED 15:45 → INTOOBSV 15:45 → UNDOADMOB 15:45 → JERBED 16:32 → J6S 17:20 → OBSVTOIN 02-20 12:36
PROVIDERS: ADMIT Internal Medicine; ATTEND Internal Medicine
DX: N17.9 Acute kidney failure, unspecified (principal); E87.0 Hyperosmolality and hypernatremia; F31.9 Bipolar disorder, unspecified; E78.5 Hyperlipidemia, unspecified; F41.9 Anxiety disorder, unspecified; I12.9 Hypertensive chronic kidney disease with stage 1 through stage 4 chronic kidney disease, or unspecified chronic kidney disease; N18.4 Chronic kidney disease, stage 4 (severe); E86.0 Dehydration; Z88.0 Allergy status to penicillin; D63.8 Anemia in other chronic diseases classified elsewhere
CPT/HCPCS: 36415; 76775-TC; 76856-TC; 80048; 80053; 80164; 81003; 81015; 82570; 82728; 83540; 83550; 84156; 84300; 85025; 85027; 90732; 93005; 93010; 99282-25; G0009; G0378